=== PATIENT | female | born 1980 | race Caucasian/White ===

== ENCOUNTER → 2017-09-29 11:45 | Outpatient (CLI) | payer OTHER, SELFPAY ==
--- NOTE | 2017-09-29 11:55 | RAD_ITS ---
STUDY: HYSTEROSALPINGOGRAM. REASON FOR EXAM: Female, 37 years old. Infertility. FLUOROSCOPY TIME (if supplied): (0:44) minutes/seconds TECHNIQUE: A hysterosalpingogram was performed by the copy lathe tender. Imaging was provided. COMPARISON: None. FINDINGS: Contrast was injected. The uterus is unremarkable. Both fallopian tubes are patent RAD/Salpingogram IMPRESSION: Both fallopian tubes are patent. Electronically Signed: Swapnil Dixon MD at 12:57 EDT Tel [phone], Service support ,
--- NOTE | 2017-09-29 12:31 | PCM.OPRPT ---
Report of Operation Date of Procedure: 09/29/17 Pre-Operative Diagnosis: infertility- primary Post-Operative Diagnosis: same Surgery/Procedure Performed:: hysterosalpingogram Description of Surgical Findings:: normal cervix and vagina drafter cartographic: None Type of Anesthesia:: None Special Medications: None Specimen's removed: None Drains: None Estimated Blood Loss (mL): 0 Fluids Replaced: 0 Description of Procedure: The patient was taken to the radiology suite where a timeout was performed. She was then placed in the dorsal lithotomy position. A speculum was placed in the vagina and the HSG balloon catheter was placed into the cervix after it was cleansed with Betadine. The HSG catheter balloon was inflated. The radiopaque dye was injected under fluoroscopy. The balloon was then deflated and a small amount more dye was placed into the uterine cavity. The instruments were all were then removed from the vagina. A vaginal sweep was performed by me. Patient was released from radiology department in stable condition. Grafts/Implants Used: None - Complications None - Admit VTE Documentation VTE Present on Admission: No VTE Mechan Device Prophylaxis: None VTE Pharm Prophylaxis ordered?: No Reason prophylaxis not ordered:: Procedure Not Indicated
--- NOTE | 2017-09-29 12:34 | OP.PCM_ITS ---
Report of Operation Date of Procedure: 09/29/17 Pre-Operative Diagnosis: infertility- primary Post-Operative Diagnosis: same Surgery/Procedure Performed:: hysterosalpingogram Description of Surgical Findings:: normal cervix and vagina medical doctor nuclear medicine: None Type of Anesthesia:: None Special Medications: None Specimen's removed: None Drains: None Estimated Blood Loss (mL): 0 Fluids Replaced: 0 Description of Procedure: The patient was taken to the radiology suite where a timeout was performed. She was then placed in the dorsal lithotomy position. A speculum was placed in the vagina and the HSG balloon catheter was placed into the cervix after it was cleansed with Betadine. The HSG catheter balloon was inflated. The radiopaque dye was injected under fluoroscopy. The balloon was then deflated and a small amount more dye was placed into the uterine cavity. The instruments were all were then removed from the vagina. A vaginal sweep was performed by me. Patient was released from radiology department in stable condition. Grafts/Implants Used: None - Complications None - Admit VTE Documentation VTE Present on Admission: No VTE Mechan Device Prophylaxis: None VTE Pharm Prophylaxis ordered?: No Reason prophylaxis not ordered:: Procedure Not Indicated
== END ==
PROVIDERS: Family Provider Family Medicine; PCP Family Medicine; Visit Provider Obstetrics & Gynecology
DX: N91.2 Amenorrhea, unspecified (principal); N97.0 Female infertility associated with anovulation
CPT/HCPCS: 58340; 74740; Q9967

== ENCOUNTER → 2023-01-13 | Outpatient (CLI) | payer OTHER, SELFPAY | END | disposition home or self-care (01) | PROVIDERS: PCP Family Medicine; Referring Provider Nurse Practitioner; Visit Provider Nurse Practitioner | DX: R30.0 Dysuria (principal) | CPT/HCPCS: 87086 ==

== ENCOUNTER 2023-01-20 14:58 | Day surgery (SDC) | payer OTHER, SELFPAY ==
[2023-01-20 15:28] VITALS: BP 150/99; PULSE 84; RESP 14; TEMP 36.4; O2SAT 100; BMI 33.0
[2023-01-20] MEDS: Lactated Ringers 1,000 ML 15 ML IV (15:46)
[2023-01-20 15:54] LABS: Internal QC Validated? YES +Cl - CLEAR BKGD; Pregnancy, Urine Negative Negative; Record Kit Lot#,Urine Preg 667200
[2023-01-20 16:14] LABS: Bedside Glucose 122 mg/dL (74-106)
[2023-01-20] MEDS: Cefazolin 2 GM in 0.9% Normal Saline (100mL Bag) 100 ML IV (17:39)
[2023-01-20 18:39] VITALS: BP 128/79; BP 150/99; PULSE 84; RESP 16; TEMP 36.9; O2SAT 96
--- NOTE | 2023-01-20 18:39 | DCINST_ITS ---
Discharge Instructions Diet Discharge Diet: No restrictions Activity Discharge Activity: Return to Normal Activity and May Not Drive (while taking narcotic pain medications.) Dressing / Incision Call your doctor if you observe: Fever of 101 or Higher Follow Up Care Please Follow Up With: Sarmad Luz MD When: Call [phone] for an appointment Test Results: Test results from this visit will be discussed in further detail at your follow- up appointment, if applicable. Discharge Plan Admission Primary Reason for Your Visit: Laser of stone Attending Provider: Sarmad Luz Primary Care Provider: Kota Brewer Discharge Orders/Prescriptions Prescriptions: New oxycodone 5 mg tablet 5 mg PO Q6H PRN (Reason: pain) 7 Days Qty: 14 0RF cephalexin 500 mg capsule 500 mg PO TID Qty: 15 0RF Continued Trulicity 1.5 mg/0.5 mL pen injector 1.5 mg SUBCUT .WEEKLY losartan 50 mg tablet 50 mg PO DAILY latanoprost 0.005 % drops 1 drp ophthalmic (eye) .BEDTIME metformin 750 mg tablet extended release 24 hr 750 mg PO BID acetaminophen 500 mg capsule 1,000 mg PO Q6H PRN (Reason: pain) multivitamin [Daily Multi-Vitamin] Tablet 1 tab PO DAILY aspirin [Aspirin Childrens] 81 mg tablet,chewable 1 tab PO DAILY Referrals / Follow Up: Sarmad Luz MD [Med Staff - Active Staff] - Kota Brewer MD [Primary Care Provider] - Disposition Disposition (needs filled in before D/C Order can be placed): Home, Self Care
--- NOTE | 2023-01-20 18:39 | PCM.HP.STD ---
[facility] - General General Date of Service: 01/20/23 Chief Complaint: Right renal calculi [facility] Narrative HARRIS SALAS, is a 42 F who presents for treatment of a right stone in the right kidney she had treatment for the stone at an outside hospital while she was on vacation. Stent was removed last week she came back with severe pain she has of significant remaining fragments and needs to be treated so today working to laser the stone fragment and placed a stent on the right PFSH Medical History (Updated 01/20/23 @ 18:[address] Sarmad Luz MD) Diabetes 1.5, managed as type 2 Hypertension Kidney stone on right side Wears contact lenses Home Medications acetaminophen 500 mg capsule 1,000 mg PO Q6H PRN pain 01/20/23 [History Last Taken 01/20/23] aspirin 81 mg chewable tablet (Aspirin Childrens) 1 tab PO DAILY 01/20/23 [History Last Taken 01/20/23] cephalexin 500 mg capsule 500 mg PO TID #15 caps 01/20/23 [Rx Last Taken Unknown] dulaglutide 1.5 mg/0.5 mL subcutaneous pen injector (Trulicity) 1.5 mg subcut .WEEKLY DIABETES 01/20/23 [History Last Taken 01/19/23] latanoprost 0.005 % eye drops 1 drp ophthalmic (eye) .BEDTIME GLAUCOMA 01/20/23 [History Last Taken 01/19/23] losartan 50 mg tablet 50 mg PO DAILY HYPERTENSION 01/20/23 [History Last Taken 01/20/23] metformin 750 mg tablet,extended release 24 hr 750 mg PO BID DIABETES 01/20/23 [History Last Taken 01/20/23] multivitamin (Daily Multi-Vitamin tablet) 1 tab PO DAILY 01/20/23 [History Last Taken 01/20/23] oxycodone 5 mg tablet 5 mg PO Q6H PRN pain 7 days #14 tabs 01/20/23 [Rx Last Taken Unknown] Allergy/AdvReac Type Severity Reaction Status Date / Time Sulfa (Sulfonamide Allergy Severe Hives Verified 01/20/23 15:48 Antibiotics) Family History (Updated 01/20/23 @ 15:21 by Reuben Patel) Mother Uterine cancer Heart murmur Diabetes 1.5, managed as type 2 Father Diabetes 1.5, managed as type 2 Afib Brother Epilepsy Diabetes 1.5, managed as type 2 Hypothyroid Family History no significant family his Social History (Updated 01/20/23 @ 15:24 by Reuben Patel) household members: spouse housing: house number of children: 0 financial difficulty paying for basics: not applicable service: No current occupational status: employed current occupation: [employer] current occupational exposures/hazards: No pets and animals: Yes history of recent travel: No sexually active: Yes do you think of yourself as: straight/heterosexual current gender identity: female Smoking Status: Never smoker Vital Signs Vital Signs Vital Signs: 01/20/23 15:28 01/20/23 15:28 Temperature 97.6 F L Temperature Source Temporal Pulse Rate 84 Respiratory Rate 14 Respiratory Pattern Normal Blood Pressure 150/99 H Blood Pressure Mean 116 Blood Pressure Source Monitor Blood Pressure Position Semi-Fowlers Pulse Ox 100 Oxygen Delivery Method Room Air Weight Weight: 93 kg Body Mass Index (BMI) 33.0 Results Lab / Micro Data Labs: Laboratory Results - last 24 hr 01/20/23 15:35: Urine Test Negative 01/20/23 15:39: POC Glucose 122 H
--- NOTE | 2023-01-20 18:40 | OP.PCM_ITS ---
Report of Operation Date of Procedure: 01/20/23 Pre-Operative Diagnosis: Right ureteral calculi proximal Post-Operative Diagnosis: Same Surgery/Procedure Performed:: Cystoscopy, right retrograde pyelogram, interpretation fluoroscopic images, right ureteroscopy laser lithotripsy of stone and right stent placement Description of Surgical Findings:: Patient was taken back to the operating room at a smooth induction of anesthesia she was placed in dorsolithotomy position. The urethrovaginal area prepped and draped in usual sterile fashion went in the bladder with a 21 Marshallese rigid cystourethroscope, cannulated the right ureteral orifice with a Glidewire advanced a wire up into the kidney and then once the wire was in place went in with a flexible ureteroscope. We then used contrast performed a retrograde pyelogram could see the delineation of the anatomy the stone in the proximal ureter. I then went up with the flexible ureteroscope to use a 365 ?m laser fiber and perform laser lithotripsy on a large 9 mm fragment that was still in the proximal ureter causing obstruction the fragment was completely lasered into little tiny pieces once the fragment was successfully lasered completely then I put a wire through the ureteroscope backed out the ureteroscope backloaded the scope over the wire and then advanced the stent into the right kidney once the stent was in good position I pulled the string and this stent coiled in good position in the kidney and bladder trim the string and then drained the bladder patient anesthetic was reversed and plan to see her next week for cystoscopy stent removal Surgeon: Sarmad Luz Type of Anesthesia: General Drains: Right stent Estimated Blood Loss (mL): None Admit VTE Documentation VTE Present on Admission: No
[2023-01-20 18:45] VITALS: BP 141/71; BP 150/99; PULSE 94; RESP 16; O2SAT 100
[2023-01-20] MEDS: Ketorolac 15 MG/ML Vial IV (18:46)
[2023-01-20 19:00] VITALS: BP 138/81; BP 150/99; PULSE 82; RESP 18; O2SAT 100
[2023-01-20 19:05] VITALS: BP 135/81; BP 150/99; PULSE 78; RESP 18; TEMP 36.6; O2SAT 100
[2023-01-20] MEDS: Ondansetron 4 MG/2 ML Vial IV (19:39)
[2023-01-20] MEDS: Metoclopramide 10 MG/2 ML Vial IV (19:50)
[2023-01-20] MEDS: Lactated Ringers 1,000 ML 100 ML IV (19:51)
[2023-01-20 20:20] VITALS: BP 139/87; BP 150/99; PULSE 86; RESP 18; TEMP 36.4; O2SAT 97
== END 2023-01-20 20:25 | disposition home or self-care (01) ==
LOC: SDC 15:04 → AC 15:05
PROVIDERS: Anesthesiology; PCP Family Medicine; Referring Provider Urology; Visit Provider Urology
PROC: 0TJ98ZZ Inspection of Ureter, Via Natural or Artificial Opening Endoscopic (ICD-10-PCS; CPT 52352; principal; 2023-01-20 15:10)
DX: N20.2 Calculus of kidney with calculus of ureter (principal); E13.9 Other specified diabetes mellitus without complications; I10 Essential (primary) hypertension; Z79.82 Long term (current) use of aspirin; Z79.84 Long term (current) use of oral hypoglycemic drugs; Z79.899 Other long term (current) drug therapy
CPT/HCPCS: 52356; 00918; 76000; 81025; 82962; J7120; C1769; C2617; J2405

== ENCOUNTER → 2023-01-20 | Outpatient (CLI) | payer OTHER, SELFPAY ==
--- NOTE | 2023-01-20 14:08 | CT_ITS ---
STUDY: CT ABDOMEN AND PELVIS WITHOUT CONTRAST REASON FOR EXAM: Female, 42 years old. STONE PROTOCOL. Right flank pain. Ureteral stent removal one week ago. RADIATION DOSAGE (If Supplied By Facility): CTDIvol = ( 15.9 ) mGy, DLP = ( 802.26 ) mGycm TECHNIQUE: Transaxial images were obtained from the dome of the diaphragm to the symphysis pubis without oral contrast, and without intravenous contrast. Sagittal and coronal images were reconstructed. Individualized dose optimization techniques were used for this CT. COMPARISON: None. FINDINGS: The visualized lung bases are unremarkable. The visualized portions of the heart are within normal limits. Normal liver. Normal gallbladder and extrahepatic biliary system. Normal spleen. Normal pancreas. Normal bilateral adrenal glands. There is engorgement of the right kidney with the right perinephric stranding. Mild degree of right hydronephrosis due to a 6.5 mm x 5.9 mm calculus in the proximal portion of the right ureter. Normal left kidney. Normal visualized stomach. Normal small intestine. Normal colon. The appendix is visualized and appears normal. Normal abdominal aorta. Normal inferior vena cava. Normal retroperitoneum. Normal urinary bladder. Small follicles are seen in both ovaries slightly more prominent on the right side. Calcified phleboliths are seen in the pelvis. There is a small umbilical hernia containing fat. Normal osseous structures. CT/Abdomen/Pelvis without Cont IMPRESSION: 6.5 mm x 5.9 mm calyx in the proximal portion of the right ureter causing mild right hydronephrosis. Right perinephric stranding. Small follicles are seen in both ovaries. Electronically Signed: Swapnil Dixon MD at 14:47 EST ,
== END | disposition home or self-care (01) ==
PROVIDERS: PCP Family Medicine; Referring Provider Urology; Visit Provider Urology
DX: N20.0 Calculus of kidney (principal)
CPT/HCPCS: 74176